=== PATIENT | male | born 1960 | race Caucasian/White ===

== ENCOUNTER 2018-01-14 05:38 | Inpatient (IN) | payer OTHER ==
[~2018-01-14] VITALS: Ht 188 cm; Wt 108.9 kg
[2018-01-14] VITALS (13 sets, daily range): BP systolic 113–138; BP diastolic 65–82
--- NOTE | 2018-01-14 05:55 | NUR ---
RN NOTES PT. CAME FOR DAY SURGERY, A/OX4, AMBULATORY, FAMILY IS WITH THE PT. , PRE-OP INSTRUCTION WAS GIVEN, CALL LIGHT WITHIN REACH, [id number], CONTINUE TO MONITOR
--- NOTE | 2018-01-14 06:10 | NUR ---
RN NOTES INSERTED IV ACCESS ON THE RIGHT FOREARM GAUGE 20
[2018-01-14] MEDS ORDERED: CELECOXIB 100 MG CAPSULE PO ONE (06:30)
[2018-01-14] MEDS ORDERED: ACETAMINOPHEN 325 MG TABLET PO ONE (06:30)
[2018-01-14] MEDS ORDERED: oxyCODONE HCL SR 10MG TAB.SR.12H PO ONE (06:30)
[2018-01-14] MEDS ORDERED: CEFAZOLIN 1 GM in IV NS 0.9% 50 ML IV SCH (06:30)
[2018-01-14] MEDS ORDERED: CEFAZOLIN 1 GM ONE (06:38)
[2018-01-14] MEDS ORDERED: FLUC200T8 PO (06:45)
[2018-01-14] MEDS ORDERED: TRAZ-182 PO (06:45)
[2018-01-14] MEDS ORDERED: SERT100T PO (06:45)
[2018-01-14] MEDS ORDERED: PANT40TA2 PO (06:45)
[2018-01-14] MEDS ORDERED: LOSA100T15 PO (06:45)
[2018-01-14] MEDS ORDERED: ARIP2TAB11 PO (06:45)
--- NOTE | 2018-01-14 06:45 | NUR ---
RN NOTES PRE-OP MEDS WAS GIVEN, PT. TOLERATED FAIRLY
[2018-01-14] MEDS ORDERED: TRANEXAMIC ACID 3,000 MG in SODIUM CHLORIDE IRRIG SOLUTION 70 ML IR ONE (07:00)
--- NOTE | 2018-01-14 07:10 | NUR ---
RN NOTES PT. SENT TO OR ON STABLE CONDITION
[2018-01-14 07:20] LABS: ALBUMIN 4.3 g/dL (3.4-5.0); BASOPHILS % (AUTO) 0.7 % (0.0-2.0); BILIRUBIN,TOTAL 0.8 mg/dL (0.2-1.0); CALCIUM, SERUM 9.6 mg/dL (8.5-10.1); CREATININE 1.2 mg/dL (0.6-1.3); EOSINOPHILS % (AUTO) 2.9 % (0.0-6.0); HEMATOCRIT 43 % (39-51); HEMOGLOBIN 14.8 g/dL (13.5-17.5); LYMPHOCYTES # (AUTO) 1.2 /CMM (0.8-4.8); LYMPHOCYTES % (AUTO) 16.5 % (20.0-44.0); MEAN CORPUSCULAR HGB CONC 34 g/dl (31.0-36.0); MEAN CORPUSCULAR VOLUME 98 fL (80-96); MONOCYTES # (AUTO) 0.4 /CMM (0.1-1.30); MONOCYTES % (AUTO) 6.2 % (2.0-12.0); NEUTROPHILS # (AUTO) 5.2 /CMM (1.8-8.9); NEUTROPHILS % (AUTO) 73.7 % (43.0-81.0); PLATELET COUNT (AUTO) 240 /CMM (150-450); POTASSIUM 4.1 mmol/L (3.5-5.1); RED BLOOD CELL COUNT(AUTO) 4.39 MIL/uL (4.5-6.0); TOTAL PROTEIN, SERUM 7.8 g/dL (6.4-8.2); WHITE BLOOD COUNT (AUTO) 7.1 K/uL (4.3-11.0)
--- NOTE | 2018-01-14 07:30 | NUR ---
MS RN NOTE PATIENT RESTING COMFORTABLY IN BED, NO SOB NOTED, ALERT ORIENTED X2 NO C\O PAIN OR DISCOMFORT AT THIS TIME ,ALL NEEDS ATTENDED ,FOR SURGERY TAKEN TO OR , WILL F\U
[2018-01-14 07:39] LABS: APPEARANCE,URINE CLEAR (CLEAR); BILIRUBIN,URINE NEGATIVE (NEGATIVE); BLOOD, URINE TRACE Ery/uL (NEGATIVE); COLOR,URINE YELLOW (YELLOW); KETONES,URINE TRACE (NEGATIVE); LEUKOCYTE ESTERASE ,URINE NEGATIVE (NEGATIVE); NITRITE, URINE NEGATIVE (NEGATIVE); PH,URINE 5.5 (5.0-8.0); PROTEIN,URINE NEGATIVE (NEGATIVE); UGLUCOSE NEGATIVE (NEGATIVE); UROBILINOGEN,URINE 0.2 EU/dL (0.2)
[2018-01-14] MEDS ORDERED: MAG HYDROX/AL HYDROX/SIMETH 30 ML UDC PO PRN (08:00)
[2018-01-14] MEDS ORDERED: diphenhydrAMINE HCL 25 MG CAPSULE PO PRN (08:00)
[2018-01-14] MEDS ORDERED: CLONIDINE HCL 0.1 MG TABLET PO PRN (08:00)
[2018-01-14] MEDS ORDERED: MAGNESIUM HYDROXIDE 30 ML UDC PO PRN (08:00)
[2018-01-14] MEDS ORDERED: PROMETHAZINE HCL 50 MG/ML AMPUL IM PRN (08:00)
[2018-01-14] MEDS ORDERED: ONDANSETRON HCL/PF 4 MG/2 ML VIAL IV PRN ×2 (08:00)
[2018-01-14 08:13] LABS: BACTERIA,URINE Few /HPF (None Seen)
[2018-01-14 08:14] LABS: RBC,URINE 0-2 /HPF (0-2); SQUAMOUS EPITHELIAL CELL,UR Rare /HPF (None Seen); WBC,URINE 0-2 /HPF (0-3)
[2018-01-14] MEDS ORDERED: TRAZODONE 50 MG TABLET PO PRN (08:30)
[2018-01-14] MEDS ORDERED: BACITRACIN 50000 UNITS/VIAL ONE (08:39)
[2018-01-14] MEDS ORDERED: MIDAZOLAM HCL 2 MG/2ML VIAL ONE (08:42)
[2018-01-14] MEDS ORDERED: FENTANYL PF 100MCG/2ML AMPUL ONE (08:43)
[2018-01-14] MEDS ORDERED: BUPIVACAINE 0.75% DEXT-PF 2 ML AMPUL ONE (08:43)
[2018-01-14] MEDS ORDERED: MORPHINE SULFATE/PF 10 MG/10ML (1MG/ML) AMPUL ONE (08:43)
[2018-01-14 08:48] LABS: INR 1.02 (0.87-1.13)
[2018-01-14] MEDS ORDERED: SERTRALINE HCL 50 MG TABLET PO SCH (09:00)
[2018-01-14] MEDS ORDERED: FAMOTIDINE (20 MG) 20 MG TABLET PO SCH (09:00)
[2018-01-14] MEDS ORDERED: diphenhydrAMINE HCL 50 MG/ML VIAL IV PRN (11:00)
[2018-01-14] MEDS ORDERED: ZOLPIDEM TARTRATE 5 MG TABLET PO PRN (11:00)
[2018-01-14] MEDS ORDERED: BISACODYL SUPP (10 MG) 10 MG/SUPP.RECT SUPP.RECT RC PRN (11:00)
[2018-01-14] MEDS ORDERED: NALOXONE HCL 0.4 MG/ML AMPUL IV PRN (11:00)
[2018-01-14] MEDS ORDERED: SENNOSIDES 8.6 MG TABLET PO PRN (11:00)
--- NOTE | 2018-01-14 11:00 | NUR ---
LAMP SHADES SUPERVISOR NOTE RECEIVED PATIENT FROM OR WITH DX LT KNEE REPLACEMENT, ALERT, ORIENTED X3 NO SOB NOTED NO C\O PAIN AT HIS TIME, LT KNEE WITH IMMOBILIZER IN PLACE , ICE PACK ON LT KNEE IN PLACE , ON LR IVF ORDERED , HL ON RT FA INTACT , NO S\S INFECTION NOTED , PLACED ON TELE SR 88 , DVT PUMPS BOTH LEGS . ALL NEEDS ATTENDED FAMILY AT BEDSIDE, SAT 95% NOT IN ACUTE DISTRESS
[2018-01-14] MEDS ORDERED: IV LR 1000 ML 1,000 ML IV PRN (11:30)
[2018-01-14] MEDS: DOCUSATE SODIUM 100 MG CAPSULE PO SCH ×2 (11:50→16:24)
[2018-01-14] MEDS: SERTRALINE HCL 50 MG TABLET PO SCH (11:50)
[2018-01-14] MEDS: IV LR 1000 ML 1,000 ML IV PRN (11:51)
--- NOTE | 2018-01-14 13:55 | NUR ---
PROFESSOR OF MARKETING NOTE AMBULATED WELL WITH PT USING A WALKER
--- NOTE | 2018-01-14 14:09 | NUR ---
WHIRLEY OPERATOR NOTE PLACED ON CPM MACHINE ORDERED BY PT WILL CONT TO MONITOR CLOSELY ,
[2018-01-14] MEDS: oxyCODONE IR immediate release 5 MG PO PRN (15:04)
[2018-01-14] MEDS: HYDROMORPHONE 1 MG/1 ML DISP.SYRIN SQ PRN ×2 (16:25→20:20)
[2018-01-14] MEDS: CEFAZOLIN SODIUM 1 GM in IV SODIUM CHLORIDE 0.9% 50 ML IV SCH (16:27)
--- NOTE | 2018-01-14 16:38 | NUR ---
LOSS PREVENTION AUDITOR NOTE SPOKE WITH JORDANA RICARDO DNP OK TO GIVE DILAUDID SQ ORDERED
--- NOTE | 2018-01-14 18:42 | NUR ---
EDITOR HOUSE ORGAN NOTE PATIENT STILL HAVE CPM MACHINE . STATED THAT WILL HAVE FOR OTHER HOUR , PAIN 3\10 ON LT KNEE
--- NOTE | 2018-01-14 19:00 | NUR ---
STRUCTURAL STEEL IRONWORKER NOTE CPM MACHINE REMOVED , ALL NEEDS ATTENDED ,NOT IN ACUTE DISTRESS, WILL CONT TO MONITOR CLOSELY
--- NOTE | 2018-01-14 19:30 | NUR ---
TENANT SELECTOR NOTES: RECEIVED PT ON BED ALERT AND AWAKE. ABLE TO MAKE NEEDS KNOWN. NO ACUTE DISTRESS NOTED. COMPLAINED OF LEFT KNEE PAIN, PRN PAIN MEDS WILL BE GIVEN. ON ROOM AIR, SATURATING WELL. NO SOB NOTED. SINUS RHYTHM ON TELE MONITOR 61BPM. CUNHA CATH INTACT AND PATENT WITH CLEAR YELLOW URINE DRAINING. KEPT CLEAN, DRY AND COMFORTABLE. CALL LIGHT PLACED WITHIN REACH. SAFETY AND FALL PRECAUTIONS OBSERVED AND MAINTAINED. WILL CONTINUE TO MONITOR PT.
--- NOTE | 2018-01-14 19:58 | NUR ---
S/P Left [facility] today. He lives at home with . Prior to admission, he was ambulatory and independent with adl's. Has no DME or homehealth provided. He plan to return home once discharge. He will benefit from outpt physical therapy and walker. Addendum: 01/14/18 at 1957 by LEONARD PENDLETON RN Amended: Links added.
[2018-01-14] MEDS: PANTOPRAZOLE 40 MG TABLET.DR PO SCH (21:11)
[2018-01-14] MEDS: TAMSULOSIN 0.4 MG CAP.SR.24H PO SCH (21:11)
[2018-01-14] MEDS: LORAZEPAM 1 MG TABLET PO SCH (21:11)
[2018-01-15] VITALS (8 sets, daily range): BP systolic 100–130; BP diastolic 63–82
[2018-01-15] MEDS: oxyCODONE IR immediate release 5 MG PO PRN ×3 (00:23→20:38)
[2018-01-15] MEDS: IV LR 1000 ML 1,000 ML IV PRN ×2 (00:23→13:24)
[2018-01-15] MEDS ORDERED: CEFAZOLIN 1 GM ONE (01:23)
[2018-01-15] MEDS: CEFAZOLIN SODIUM 1 GM in IV SODIUM CHLORIDE 0.9% 50 ML IV SCH (01:24)
[2018-01-15] MEDS: HYDROMORPHONE 1 MG/1 ML DISP.SYRIN SQ PRN ×4 (02:38→17:03)
--- NOTE | 2018-01-15 02:46 | NUR ---
ELECTRIC CRANE OPERATOR NOTES: PT NOTED TO HAVE A 3SECS VTACH EPISODE. UPON ASSESSMENT PT WAS SLEEPING, BUT HE AROUSES EASILY. BP 107/64, PT COMPLAINED OF LEFT KNEE PAIN, PRN DILAUDID GIVEN. CUE SELECTOR OSCAR REECE MADE AWARE, NO NEW ORDERS AT THIS TIME. WILL CONTINUE TO MONITOR PT.
--- NOTE | 2018-01-15 06:30 | NUR ---
SHOT POLISHER NOTES: PT IN BED, ASLEEP. NO ACUTE DISTRESS NOTED. ON ROOM AIR, SATURATING WELL. NO SOB NOTED. STILL COMPLAINING OF LEFT KNEE PAIN, PRN PAIN MEDS GIVEN. CUNHA CATH INTACT AND PATENT, DRAINED 1000CC OF URINE OUTPUT. ON TELE MONITOR SINUS RHYTHM HR 60BPM. KEPT CLEAN, DRY AND COMFORTABLE. SAFETY AND FALL PRECAUTIONS OBSERVED AND MAINTAINED. WILL ENDORSE TO DAY SHIFT RN FOR CONTINUITY OF CARE.
[2018-01-15 07:13] LABS: BASOPHILS % (AUTO) 0.2 % (0.0-2.0); EOSINOPHILS % (AUTO) 0.6 % (0.0-6.0); HEMATOCRIT 39 % (39-51); HEMOGLOBIN 13.2 g/dL (13.5-17.5); LYMPHOCYTES % (AUTO) 12.1 % (20.0-44.0); MEAN CORPUSCULAR HGB CONC 34 g/dl (31.0-36.0); MEAN CORPUSCULAR VOLUME 99 fL (80-96); MONOCYTES # (AUTO) 0.6 /CMM (0.1-1.30); MONOCYTES % (AUTO) 7.2 % (2.0-12.0); NEUTROPHILS # (AUTO) 6.8 /CMM (1.8-8.9); NEUTROPHILS % (AUTO) 79.9 % (43.0-81.0); PLATELET COUNT (AUTO) 206 /CMM (150-450); RED BLOOD CELL COUNT(AUTO) 3.91 MIL/uL (4.5-6.0); WHITE BLOOD COUNT (AUTO) 8.5 K/uL (4.3-11.0)
[2018-01-15] MEDS: SERTRALINE HCL 50 MG TABLET PO SCH (08:14)
[2018-01-15] MEDS: DOCUSATE SODIUM 100 MG CAPSULE PO SCH ×2 (08:14→17:01)
--- NOTE | 2018-01-15 08:15 | NUR ---
NEW CAR SALESPERSON INITIAL NOTES Patient is up sitting in bed, had breakfast with fair appetite. [place]us [place] HR 57 in the tele monitor. Complaint of left knee pain 8/10, medicated with SC PRN Dilaudid, will reassess. Left knee dressing intact, clean and dry. Maintained safety precaution.
[2018-01-15] MEDS ORDERED: ASPIRIN 325 MG TABLET PO SCH (09:00)
[2018-01-15] MEDS: ASPIRIN 325 MG TABLET PO SCH (09:27)
--- NOTE | 2018-01-15 13:04 | NUR ---
Patient ambulates with PT, 50 feet. Post op day 1, removed urinary adam cath. obtained 900ml mike color urine.
--- NOTE | 2018-01-15 18:05 | NUR ---
COMPUTED TOMOGRAPHY TECHNOLOGIST CLOSING NOTES Patient is seen by PT today, ambulates 80ft, WBAT LLE per ortho. Patient tolerated CPM machine when place. Left knee pain managed by IV Dilaudid, encouraged IS use while awake, verbalized understanding. Sinus rhythm HR 68 on the Tele monitor, HR Q4hour checked. Urinary adam cath. was removed earlier today, patient voided urinal, no s/s of urinary retention. IVF infusing, maintained fall precaution. Will endorse to oncoming RN.
--- NOTE | 2018-01-15 20:14 | NUR ---
REGISTRATION SCHEDULING SPECIALIST INITIAL NOTES: RECEIVED PT ON BED ALERT AND AWAKE. ABLE TO MAKE NEEDS KNOWN. NO ACUTE DISTRESS NOTED. S/P LEFT KNEE ARTHROPLASTY, PRN PAIN MEDS WILL BE GIVEN, PT AMBULATED 50 FT W/PT DURING DAY SHIFT. ON ROOM AIR, SATURATING WELL. NO SOB NOTED. SINUS RHYTHM ON TELE MONITOR 60'S. CUNHA CATH INTACT AND PATENT WITH CLEAR YELLOW URINE DRAINING. KEPT CLEAN, DRY AND COMFORTABLE. CALL LIGHT PLACED WITHIN REACH. SAFETY AND FALL PRECAUTIONS OBSERVED AND MAINTAINED. WILL CONTINUE TO MONITOR PT.
[2018-01-15] MEDS: TAMSULOSIN 0.4 MG CAP.SR.24H PO SCH (21:09)
[2018-01-15] MEDS: PANTOPRAZOLE 40 MG TABLET.DR PO SCH (21:10)
[2018-01-15] MEDS: LORAZEPAM 1 MG TABLET PO SCH (21:10)
[2018-01-16] VITALS: BP 134/77
[2018-01-16] MEDS: oxyCODONE IR immediate release 5 MG PO PRN ×2 (00:27→04:06)
--- NOTE | 2018-01-16 01:30 | NUR ---
RN INITIAL NOTES: RECEIVED PT ON BED ALERT AND AWAKE, REPORT GIVEN BY INGA . ABLE TO MAKE NEEDS KNOWN. NO ACUTE DISTRESS NOTED. S/P LEFT KNEE ARTHROPLASTY, PRN PAIN MEDS WILL BE GIVEN, PT AMBULATED 50 FT W/PT DURING DAY SHIFT. ON ROOM AIR, SATURATING WELL. NO SOB NOTED. SINUS RHYTHM ON TELE MONITOR 60'S. PT KEPT CLEAN, DRY AND COMFORTABLE. CALL LIGHT PLACED WITHIN REACH. SAFETY AND FALL PRECAUTIONS OBSERVED AND MAINTAINED. WILL CONTINUE TO MONITOR PT.
[2018-01-16 04:00] VITALS: BP 131/70
[2018-01-16] MEDS: IV LR 1000 ML 1,000 ML IV PRN (04:00)
--- NOTE | 2018-01-16 06:43 | NUR ---
RN CLOSING NOTES NO ACUTE CHANGES WITHIN THE SHIFT. ALL NURSING NEEDS ATTENDED AND MET. SAFETY MEASURES IN PLACE AT ALL TIMES. CALL LIGHT WITHIN REACH AT ALL TIMES. ALL MEDS GIVEN ORDERED. WILL ENDORSE TO AM RN.
--- NOTE | 2018-01-16 07:00 | NUR ---
DIRECTOR OF PATIENT SAFETY NOTES RECEIVED PT; PT ON BED AWAKE. PT IS IN PAIN 10/10. PT IS NOT IN RESP DISTRESS. LEFT LEG ELEVATED ON PILLOWS. CAP REFILL LESS THAN 3 SEC. SAFETY PRECAUTIONS IN PLACE. CALL LIGHT IN REACH. WILL CONT TO MONITOR PAIN LEVELS AFTER PAIN MED.
[2018-01-16 07:25] LABS: BASOPHILS % (AUTO) 0.6 % (0.0-2.0); EOSINOPHILS % (AUTO) 0.7 % (0.0-6.0); HEMATOCRIT 34 % (39-51); HEMOGLOBIN 11.8 g/dL (13.5-17.5); LYMPHOCYTES # (AUTO) 0.8 /CMM (0.8-4.8); LYMPHOCYTES % (AUTO) 10.1 % (20.0-44.0); MEAN CORPUSCULAR HGB CONC 35 g/dl (31.0-36.0); MEAN CORPUSCULAR VOLUME 97 fL (80-96); MONOCYTES # (AUTO) 0.7 /CMM (0.1-1.30); MONOCYTES % (AUTO) 8.6 % (2.0-12.0); NEUTROPHILS # (AUTO) 6.4 /CMM (1.8-8.9); PLATELET COUNT (AUTO) 169 /CMM (150-450); RED BLOOD CELL COUNT(AUTO) 3.49 MIL/uL (4.5-6.0)
[2018-01-16 07:53] LABS: CALCIUM, SERUM 8.7 mg/dL (8.5-10.1); CREATININE 0.7 mg/dL (0.6-1.3); MAGNESIUM 1.7 mg/dL (1.8-2.4); PHOSPHORUS 2.6 mg/dL (2.5-4.9); POTASSIUM 3.8 mmol/L (3.5-5.1)
[2018-01-16 08:00] VITALS: BP 119/71
[2018-01-16] MEDS: DOCUSATE SODIUM 100 MG CAPSULE PO SCH ×2 (09:04→16:00)
[2018-01-16] MEDS: ASPIRIN 325 MG TABLET PO SCH (09:05)
[2018-01-16] MEDS: SERTRALINE HCL 50 MG TABLET PO SCH (09:05)
[2018-01-16] MEDS: HYDROMORPHONE 1 MG/1 ML DISP.SYRIN SQ PRN ×3 (09:05→20:16)
[2018-01-16 16:00] VITALS: BP 117/66
[2018-01-16] MEDS: Magnesium 1GM/D5W 100ML PREMIX 100 ML IV SCH ×2 (16:23→18:00)
--- NOTE | 2018-01-16 19:00 | NUR ---
M/S RN CLOSING NOTES REPORT GIVEN TO PM NURSE FOR RAMILA. PT IS NOT IN DISTRESS. ALL NEEDS ATTENDED TO. SAFETY IS IN PLACE. CALL LIGHT IN REACH.
[2018-01-16 20:00] VITALS: BP 129/64
--- NOTE | 2018-01-16 20:25 | NUR ---
RN MS NOTES, ENDORSED PATIENT TO ACE RN FOR CONTINUATION OF CARE, PATIENT ALERT AND ORIENTED NO S/S OF SOB/ACUTE DISTRESS NOTED AT THIS TIME, BREATHING EVEN AND UNLABORED, C/O PAIN 8/10 AND DILAUDID ORDERED ADMINISTERED.
--- NOTE | 2018-01-16 20:30 | NUR ---
RN MS NOTES RECEIVED PATIENT IN BED AWAKE. ALERT AND ORIENTED X4, VERBALLY RESPONSIVE, ABLE TO MAKE NEEDS KNOWN. BREATHING EVEN AND UNLABORED. NO SOB NOTED -TOLERATING ROM AIR. CURRENTLY WITH MINIMAL PAIN AFTER DILAUDID WAS GIVEN. WILL GIVE NEXT SCHEDULED PAIN MEDICATION PRN. IV ACCESS INTACT AND PATENT. SKIN DRY AND WARM TO TOUCH. AFEBRILE. ALL OTHER NEEDS ATTENDED TO. SAFETY MEASURES IN PLACE. CALL LIGHT WITHIN REACH. WILL CONTINUE TO MONITOR.
[2018-01-16] MEDS: TAMSULOSIN 0.4 MG CAP.SR.24H PO SCH (22:17)
[2018-01-16] MEDS: PANTOPRAZOLE 40 MG TABLET.DR PO SCH (22:17)
[2018-01-16] MEDS: LORAZEPAM 1 MG TABLET PO SCH (22:17)
[2018-01-17] VITALS: BP 150/78
[2018-01-17] MEDS: HYDROMORPHONE 1 MG/1 ML DISP.SYRIN SQ PRN ×3 (00:08→14:48)
[2018-01-17 04:00] VITALS: BP 115/79
--- NOTE | 2018-01-17 06:36 | NUR ---
RN MS CLOSING NOTES PATIENT IN BED ASLEEP. EASILY AROUSABLE. NO ACUTE CHANGES THROUGHOUT SHIFT. BREATHING EVEN AND UNLABORED. NO SOB NOTED -TOLERATING ROM AIR. NO COMPLAINTS OF PAIN OR DISCOMFORT. IV ACCESS INTACT AND PATENT. SKIN DRY AND WARM TO TOUCH. AFEBRILE. ALL OTHER NEEDS ATTENDED TO. SAFETY MEASURES IN PLACE. CALL LIGHT WITHIN REACH. WILL ENDORSE TO ONCOMING NURSE FOR CONTINUITY OF CARE.
[2018-01-17 07:23] LABS: CALCIUM, SERUM 8.4 mg/dL (8.5-10.1); CREATININE 0.9 mg/dL (0.6-1.3); MAGNESIUM 1.9 mg/dL (1.8-2.4); POTASSIUM 3.6 mmol/L (3.5-5.1)
--- NOTE | 2018-01-17 07:32 | NUR ---
MS RN OPENING NOTES RECEIVED PT FROM NIGHTSHIFT NURSE IN STABLE CONDITION. PT IS A/O X4. NO SOB OR ACUTE SIGNS OF DISTRESS NOTED. BREATHING IS EVEN AND UNLABORED. PT ON RA AND SATING WELL. HE REPORTS OF AN ACHING PAIN IN HIS LEFT KNEE RATED A 8/10. WILL ADMINISTER PRN PAIN MEDICATION. IV TO LEFT FA NOTED TO BE PATENT AND INTACT. NO REDNESS OR SIGNS OF INFILTRATION NOTED. BED IN LOW LOCKED POSITION, SIDE RAILS UP X2, CALL LIGHT WITHIN REACH. WILL CONTINUE TO MONITOR
[2018-01-17 08:00] VITALS: BP 130/75
[2018-01-17] MEDS: DOCUSATE SODIUM 100 MG CAPSULE PO SCH (08:09)
[2018-01-17] MEDS: ASPIRIN 325 MG TABLET PO SCH (08:09)
[2018-01-17] MEDS: SERTRALINE HCL 50 MG TABLET PO SCH (08:09)
--- NOTE | 2018-01-17 16:06 | NUR ---
MS SENIOR SAS DEVELOPER NOTES PT WAS DISCHARGED FROM FACILITY IN STABLE CONDITION. ALL NEEDS WERE MET DURING SHIFT AND ORDERS CARRIED OUT ACCORDINGLY. ALL DUE MEDS GIVEN. WOUND AND DRESSING CHANGE RENDERED ORDERED PRIOR TO D/C. IV WAS SUCCESSFULLY REMOVED WITH NO COMPLICATIONS. PT PROVIDED WITH COPIES OF D/C PAPERWORK. HOME HEALTH SERVICES SET UP BY FITNESS MANAGEMENT DIRECTOR PRIOR TO D/C PT INFORMED THAT [facility] WILL CONTACT HIM LATER TODAY TO SET UP VISITATION. PT WAS SAFELY ESCORTED TO THE MAIN LOBBY BY THE BUTANE COMPRESSOR OPERATOR AND LEFT VIA PRIVATE VEHICLE
== END 2018-01-17 16:05 | disposition home or self-care (01) | DRG 470 ==
LOC: DS 05:38 → MEDSG1 05:41 → TELE1 14:04 → MEDSG1 01-16 10:43
PROVIDERS: ADMIT Specialist; ATTEND Specialist
PROC: 0SRD0J9 Replacement of Left Knee Joint with Synthetic Substitute, Cemented, Open Approach (ICD-10-PCS; principal; 2018-01-14 09:20)
DX: M17.12 Unilateral primary osteoarthritis, left knee (principal); F32.9 Major depressive disorder, single episode, unspecified; D53.9 Nutritional anemia, unspecified; K21.9 Gastro-esophageal reflux disease without esophagitis; I10 Essential (primary) hypertension; R74.0 Nonspecific elevation of levels of transaminase and lactic acid dehydrogenase [LDH]; G47.00 Insomnia, unspecified
CPT/HCPCS: 36415; 80048-TC; 80053-TC; 81000-TC; 83735-TC; 84100-TC; 85025-TC; 85027-TC; 85610-TC; 85730-TC; 86706; 86803; 86850-TC; 87081-TC; 87340; 87806; 88305-TC; 88311-TC; 97110-TC; 97116-TC; 97530-TC; 97760-TC; A4216; A4217; A4606; A6402; C1713; G0378; J0690; J1100; J1170; J2250; J2274; J2550; J2704; J3010; J3475; J3490; J7120; L1830; Z7610